=== PATIENT | female | born 1970 | race Caucasian/White ===

== ENCOUNTER 2017-06-13 09:54 | Day surgery (SDC) | payer BC ==
[~2017-06-13] VITALS: Ht 160 cm; Wt 75.7 kg
[~2017-06-13 09:54] MED LIST: TUMS ULTRA1000 MG PO; ZANTAC150 MG PO
[2017-06-13 10:24] VITALS: BP 124/65
[2017-06-13] MEDS ORDERED: ENDOCET 5-3251 EACH PO (11:30)
[2017-06-13] MEDS ORDERED: IBUPROFEN800 MG PO (11:30)
[2017-06-13 13:55] VITALS: BP 116/60
[2017-06-13 14:45] VITALS: BP 107/56
== END 2017-06-13 14:48 | disposition home or self-care (01) ==
LOC: SDC 09:54
PROC: 0UDB8ZX Extraction of Endometrium, Via Natural or Artificial Opening Endoscopic, Diagnostic (ICD-10-PCS; principal; 2017-06-13)
DX: N92.6 Irregular menstruation, unspecified (principal); N84.0 Polyp of corpus uteri; R10.2 Pelvic and perineal pain; K21.9 Gastro-esophageal reflux disease without esophagitis; Z88.1 Allergy status to other antibiotic agents; Z88.5 Allergy status to narcotic agent
CPT/HCPCS: 88305; J1100; J1170; J1885; J2250; J2405; J3010; Q0175